=== PATIENT | female | born 1995 | race Caucasian/White ===

== ENCOUNTER → 2022-08-18 | Outpatient (CLI) | payer SELFPAY ==
[~2022-08-18] VITALS: Ht 165.1 cm; Wt 68.2 kg
[~2022-08-18] MED LIST: ASPIRIN 81M81 MG/TA2 PO; NATURAL IRON65 MG; PRENATAL; PRILOSEC 20MG20 MG PO
[2022-08-18 15:30] VITALS: BP 128/73; PULSE 71; TEMP 97.4
[2022-08-18 15:43] LABS: HEMOGLOBIN 10.5 g/dl (12.5-16.0); MEAN CELL VOLUME 94 fl (80.0-100.0); MEAN CORPUSCULAR HEMOGLOBIN 32 pg (27-31); MEAN CORPUSCULAR HGB CONC 34 g/dl (33.0-37.0); MEAN PLATELET VOLUME 9.8 fl (7.4-10.4); PLATELET COUNT 229 K/mm3 (130-400); RED BLOOD COUNT 3.31 M/mm3 (4.10-5.30)
[2022-08-18 15:51] LABS: HEMATOCRIT 31.1 % (37.0-47.0)
[2022-08-18 15:59] LABS: ALBUMIN 3.1 gm/dL (3.5-5.0); BILIRUBIN,TOTAL 0.2 mg/dL (0.2-1.2); CALCIUM 9.2 mg/dL (8.4-10.2); CREATININE, serum 0.6 mg/dL (0.57-1.11); POTASSIUM 3.7 mmol/L (3.5-4.5); TOTAL PROTEIN 6.7 gm/dL (6.2-8.1)
[2022-08-18 16:33] LABS: ANISOCYTOSIS 1+; BAND 21 % (0-10); EOSINOPHIL 2 % (0-4); LYMPHOCYTE 16 % (20.0-51.0); NEUTROPHILS 54 % (42.0-75.2); PLATELET ESTIMATE NORMAL (NORMAL)
[2022-08-18 16:40] VITALS: BP 113/59; PULSE 63
--- NOTE | 2022-08-18 16:58 | NUR ---
Occasional contractions noted lasting 80-110s on strip, pt denies discomfort. Dr. Sanon notified of lab results at 1638, pt reports headache, blurry vision and shortness of breath have improved, but feels heaviness in chest the same as when admitted. Pt denies any pain, reports overall feeling better. Discharge instructions discussed at 1645, handouts given for discomforts of and early labor. Pt instructed to return to hospital with any leaking of fluid, vaginal bleeding, changes in baby's movements, headache that wont go away accompanied by changes in vision and stomach pain. Pt verbalized understanding, denied questions. Pt left unit ambulatory at 1655.
== END ==
LOC: COL.ER 14:18 → LDRO 14:19 → EDSTATUS 14:37
PROVIDERS: Obstetrics & Gynecology
DX: O99.891 Other specified diseases and conditions complicating pregnancy (principal); R07.9 Chest pain, unspecified; R51.9 Headache, unspecified; H53.8 Other visual disturbances; Z3A.33 33 weeks gestation of pregnancy

== ENCOUNTER 2022-10-03 10:51 | Inpatient (IN) | payer OTHER ==
[~2022-10-03] VITALS: Ht 165.1 cm; Wt 74.1 kg
[2022-10-03] VITALS (31 sets, daily range): BP systolic 93–144; BP diastolic 49–83; PULSE 63–122; TEMP 97.5–99
--- NOTE | 2022-10-03 11:00 | NUR ---
PATIENT AMBUALTORY TO UNIT. PATIENT ORIENTED TO LABOR ROOM 4 AND ASSISTED INTO A GOWN. EFM AND TOCO PLACED AND TRACING. PATIENT REPORTS LEAKING OF FLUID STARTING AT 0600, ENOUGH TO SOAK HER UNDERWEAR INITIALLY, THEN DRIBBLES UPON STANDING, NO VAGINAL BLEEDING, GOOD MOVEMENT, NO CONTRACTIONS, BUT SOME CRAMPING. SVE AT THIS TIME 80/-2 AMNITRACE NEGATIVE. ASSESSMENTS COMPLETE AT THIS TIME, PATIENT DOES NOT HAVE ANY QUESTIONS AT THIS TIME.
[2022-10-03] MEDS ORDERED: TYLENOL PM EXTR1 TA1 PO (11:14)
--- NOTE | 2022-10-03 11:34 | NUR ---
FHR TRACING A PROLONGED LATE DECELERATION INTO THE 90s AT THIS TIME, PATIENT REPOSITIONED TO LEFT LATERAL AND PROVIDED WATER AT THIS TIME. FHR TRACING RECOVERS AFTER 2.5 MINUTES. RN REMAINS AT BEDSIDE TO EVALUATE FHR TRACING.
[2022-10-03 13:45] LABS: BASO % 0.4 % (0.0-2.0); EOS # 0.3 K/mm3 (0.0-0.7); EOS % 2.8 % (0.0-4.0); GRAN # 7.8 K/mm3 (1.4-6.5); GRAN % 69.4 % (42.2-75.2); HEMOGLOBIN 11.8 g/dl (12.5-16.0); LYMPH # 2.1 K/mm3 (1.2-3.4); MEAN CELL VOLUME 91 fl (80.0-100.0); MEAN CORPUSCULAR HEMOGLOBIN 31 pg (27-31); MEAN CORPUSCULAR HGB CONC 34 g/dl (33.0-37.0); MEAN PLATELET VOLUME 10.5 fl (7.4-10.4); MONO # 0.9 K/mm3 (0.1-0.6); MONO % 7.9 % (1.7-9.3); PLATELET COUNT 236 K/mm3 (130-400); RED BLOOD COUNT 3.82 M/mm3 (4.10-5.30); REDCELL DISTRIBUTION WIDTH-CV 13.5 % (11.5-14.5)
[2022-10-03 13:47] LABS: HEMATOCRIT 34.8 % (37.0-47.0)
--- NOTE | 2022-10-03 15:37 | NUR ---
1537-PATIENT REQUESTING EPIDURAL AT THIS TIME. LR BOLUS STARTED. 1607- YOMAIRA CHANG IN ROOM TO PLACE EPIDURAL. FHR TRACING NOT CONTINUOUS AT THIS TIME. 1617- TEST DOSE ADMINISTERED AT THIS TIME BY CORRECTIONAL GUARD, PATIENT TOLERATED WELL
--- NOTE | 2022-10-03 17:00 | NUR ---
SVE /-1.RECURRENT LATE DECELERATIONS AT THIS TIME, PITOCIN TURNED OFF AND PATIENT PLACED INTO RIGHT LATERAL, THEN KNEE CHEST TO RECOVER FHR TRACING.
--- NOTE | 2022-10-03 17:53 | NUR ---
LATE DECELERATION INTO THE 100s. PITOCIN TURNED OFF, PATIENT REPOSITIONED INTO A LATERAL POSITION. RN AT BEDSIDE TO CONTINUE EVALUATING HEART RATE TRACING
--- NOTE | 2022-10-03 18:15 | NUR ---
1814- BEDSIDE SHIFT REPORT RECEIVED, CARE ASSUMED. PT WITH AND MOTHER AT BEDSIDE. SHE IS COMFORTABLE WITH HER EPIDURAL. PITOCIN IS OFF AT THIS TIME. 1817- PT POSITIONED IN FOOTPLATES AND PUSHING DISCUSSED. QUESTIONS ANSWERED. 1818- PT BEGINS COACHED PUSHING WITH CONTRACTIONS. 1824- PITOCIN STARTED AT 2MUNITS TO INCREASE CONTRACTIONS. PT CONTINUES COACHED PUSHING. 1839- PITOCIN INCREASED TO 4MUNITS. PT CONTINUES COACHED PUSHING. 1854- PITOCIN INCREASED TO 6MUNITS. PT CONTINUES COACHED PUSHING. SHE IS COMFORTABLE WITH HER EPIDURAL. 1919- DR FLORES AT BEDSIDE TO ASSESS PROGRESS. STATES HE HAS BEEN AT THE DESK AND HAS BEEN WATCHING THE HEART TONES. DISCUSSES DECELERATIONS IN FHT WITH PT AND THAT IF THEY CONTINUE OR WORSEN A VACUUM ASSISTED DELIVERY MAY BE NECESSARY. PT VERBALIZES UNDERSTANDING. PT CONTINUES COACHED PUSHING WITH CONTRACTIONS. 1944- DR FLORES AT BEDSIDE. HE DISCUSSES CONTINUED FHT DECELS OCCURING WITH PUSHING. STATES HE RECOMMENDS A VACUUM ASSISTED DELIVERY AT THIS TIME. DISCUSSES RISK AND BENEFITS AND ANSWERS QUESTIONS. PARENTS GIVE CONSENT. 1949- DELIVERY BED BROKEN DOWN, CHARGE NURSE AND NURSERY NURSE CALLED FOR DELIVERY. DR FLORES PERFORMS STRAIGHT CATH AND SHOWS PARENTS THE VACUUM. 1951- VACUUM PLACED BY DR FLORES WITHOUT DIFFICULTY AT +2 STATION. 1954- PT CONTINUES PUSHING WITH CONTRACTIONS. DR FLORES INCREASES PRESSURE ON VACUUM AND ALSO APPLIES TRACTION WITH NEXT 3 CONTRACTIONS. TOTAL APPLIED TIME OF VACUUM IS 5 MINUTES. TOTAL TRACTION TIME OF VACUUM IS 140 SECONDS. NO POP OFFS. VACUUM PRESSURES ADJUSTED BY DR FLORES. 1999- VACUUM ASSISTED DELIVERY OF VIABLE FEMALE, TO MOTHER'S ABDOMEN AND CARE OF NURSERY STAFF. 2006- SPONTANEOUS DELIVERY OF PLACENTA, EXAMINED BY DR FLORES. PITOCIN INFUSION STARTED. REPAIR OF THIRD DEGREE LACERATION STARTED. 2029- REPAIR COMPLETE. DR FLORES DISCUSSES RECOVERY FROM THIRD DEGREE LACERATION AND ANSWERS QUESTIONS. PERICARE PROVIDED. ICEPACK TO PERINEUM. FEET DOWN FROM FOOTPLATES AND RECOVERY STARTED.
--- NOTE | 2022-10-03 21:00 | NUR ---
2099- NO BLOOD PRESSURE RECORDED. 2114- BLOOD PRESSURE NOT ACCURATE DUE TO MOM'S SHAKING. 2129- BLOOD PRESSURE NOT ACCURATE DUE TO MOM'S SHAKING. NURSE ATTEMPTS TO RETAKE IT WITHOUT SUCCESS.
--- NOTE | 2022-10-03 23:30 | NUR ---
2330- PT UNABLE TO LIFT LEFT LEG OFF BED. STATES SHE IS VERY TIRED. FUNDAL EXAM WNL. ENCOURAGED PT TO REST FOR ANOTHER HOUR AND THEN WE WILL TRY AGAIN. PT IS AGREEABLE WITH THIS PLAN. 0020- IV TO SALINE LOCK. PT ASSISTED TO SITTING POSITION ON EDGE OF BED. STATES SHE IS STILL TIRED BUT NOT DIZZY. EPIDURAL CATHETER REMOVED CHARTED. PT TOLERATED WELL. 0030- PT ASSISTED TO AMBULATE TO BATHROOM. LEFT LEG SHUFFLING. PT UNABLE TO VOID. PERICARE DISCUSSED AND PT PERFORMS. CLEAN GOWN, PAD, AND PANTIES PROVIDED. ICEPACK TO PERINEUM. WHILE CHANGING GOWN, PT STARTS TO GET LIGHTHEADED. PT SAT BACK ON TOILET AND COLD WASHCLOTHE PROVIDED. 0035- PT TRANSFERRED TO WHEELCHAIR FROM TOILET WITH ASSISTANCE. SHE IS STILL FEELING LIGHTHEADED AT THIS TIME. 0040- PT TRANSFERRED TO PER WHEELCHAIR. BABY AND BELONGINGS SENT WITH PT. PT ASSISTED TO TRANSFER TO BED, LEFT LEG STILL HEAVY. PLAN OF CARE DISCUSSED AND CALL LIGHTS WITHIN REACH. NURSE REMINDS PT NOT TO GET OUT OF BED WITHOUT ASSISTANCE AND PT VERBALIZES UNDERSTANDING OF THIS. PT DENIES FURTHER NEEDS AT THIS TIME.
[2022-10-04 03:25] VITALS: BP 119/51; PULSE 77; TEMP 97.9
[2022-10-04 19:50] VITALS: BP 118/73; PULSE 91; TEMP 97.9
[2022-10-05 08:00] VITALS: BP 123/68; PULSE 70; TEMP 97.4
[2022-10-05] MEDS ORDERED: PERCOCET 325 MG1 TA2 PO (09:28)
[2022-10-05] MEDS ORDERED: IBU800 M1 PO (09:28)
== END 2022-10-05 14:34 | disposition home or self-care (01) | DRG 768 ==
LOC: LDRO 10:51 → LDR 13:12 → OB 10-04 00:40
PROVIDERS: ADMIT Obstetrics & Gynecology
PROC: 10D07Z6 Extraction of Products of Conception, Vacuum, Via Natural or Artificial Opening (ICD-10-PCS; principal; 2022-10-03)
PROC: 0DQR0ZZ Repair Anal Sphincter, Open Approach (ICD-10-PCS; 2022-10-03)
PROC: 10907ZC Drainage of Amniotic Fluid, Therapeutic from Products of Conception, Via Natural or Artificial Opening (ICD-10-PCS; 2022-10-03)
PROC: 3E033VJ Introduction of Other Hormone into Peripheral Vein, Percutaneous Approach (ICD-10-PCS; 2022-10-03)
DX: O48.0 Post-term pregnancy (principal); Z37.0 Single live birth; O70.20 Third degree perineal laceration during delivery, unspecified; O76 Abnormality in fetal heart rate and rhythm complicating labor and delivery; O99.02 Anemia complicating childbirth; D64.9 Anemia, unspecified; O77.0 Labor and delivery complicated by meconium in amniotic fluid; Z3A.40 40 weeks gestation of pregnancy; Z86.16 Personal history of COVID-19
CPT/HCPCS: J2540; J2590; J2795; J7120

== ENCOUNTER 2022-10-07 09:47 | Emergency (ER) | payer OTHER ==
[~2022-10-07] VITALS: Ht 162.6 cm; Wt 63.6 kg
[~2022-10-07 09:47] MED LIST changes: +IBU800 M1 PO; +PERCOCET 325 MG1 TA2 PO; +TYLENOL PM EXTR1 TA1 PO
[2022-10-07 10:02] VITALS: TEMP 98.5
[2022-10-07 10:26] LABS: BASO % 0.4 % (0.0-2.0); EOS # 0.3 K/mm3 (0.0-0.7); GRAN % 71.6 % (42.2-75.2); LYMPH # 1.6 K/mm3 (1.2-3.4); LYMPH % 19.1 % (20.0-51.0); MEAN CELL VOLUME 92 fl (80.0-100.0); MEAN CORPUSCULAR HGB CONC 34 g/dl (33.0-37.0); MEAN PLATELET VOLUME 9.1 fl (7.4-10.4); MONO # 0.5 K/mm3 (0.1-0.6); MONO % 5.5 % (1.7-9.3); PLATELET COUNT 283 K/mm3 (130-400); RED BLOOD COUNT 2.85 M/mm3 (4.10-5.30); REDCELL DISTRIBUTION WIDTH-CV 13.7 % (11.5-14.5)
[2022-10-07 10:27] LABS: HEMATOCRIT 26.1 % (37.0-47.0); HEMOGLOBIN 8.8 g/dl (12.5-16.0); MEAN CORPUSCULAR HEMOGLOBIN 31 pg (27-31)
[2022-10-07 10:36] LABS: INR 0.9 (0.8-3.0); PROTHROMBIN TIME 10.6 SECONDS (9.7-12.8)
[2022-10-07 10:45] VITALS: O2SAT 100
[2022-10-07 10:52] LABS: ALBUMIN 3.2 gm/dL (3.5-5.0); BILIRUBIN,TOTAL 0.2 mg/dL (0.2-1.2); CALCIUM 8.7 mg/dL (8.4-10.2); CREATININE, serum 0.65 mg/dL (0.57-1.11); POTASSIUM 4.3 mmol/L (3.5-4.5); TOTAL PROTEIN 6.9 gm/dL (6.2-8.1)
[2022-10-07 12:00] VITALS: BP 113/78; PULSE 87
== END 2022-10-07 12:00 | disposition home or self-care (01) ==
LOC: COL.ER 09:47
PROVIDERS: Physician Assistant
DX: O90.89 Other complications of the puerperium, not elsewhere classified (principal); R07.2 Precordial pain; O90.81 Anemia of the puerperium
CPT/HCPCS: J1885; J7030; Q9967

== ENCOUNTER → 2023-06-19 | Outpatient (CLI) | payer OTHER | LOC: COL.RAD 07:56 | DX: M25.551 Pain in right hip (principal) | CPT/HCPCS: A9575; Q9967 ==

== ENCOUNTER → 2024-02-11 | Outpatient (CLI) | payer OTHER ==
[~2024-02-11] MED LIST changes: +Iohexol 300 - 100 ML VIAL IV ONE; +NS 100 ML IV SCH
== END ==
LOC: COL.RAD 14:14
DX: T83.32XA Displacement of intrauterine contraceptive device, initial encounter (principal); R61 Generalized hyperhidrosis
CPT/HCPCS: Q9967